=== PATIENT | male | born 1980 | race Hispanic/Latino ===

== ENCOUNTER 2020-04-04 09:45 | Emergency (ER) | payer BC, OTHER ==
[~2020-04-04] VITALS: Ht 185.4 cm; Wt 111.1 kg
[2020-04-04] MEDS ORDERED: IBUPROFEN 600 MG TAB PO STA (09:49)
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
[2020-04-04] MEDS ORDERED: ULTRAM50 MG PO (09:55)
--- NOTE | 2020-04-04 10:52 | Diagnostic Imaging Report ---
EXAMINATION: SHOULDER LEFT COMPLETE INDICATION: Trauma COMPARISON: None FINDINGS: Internal and external rotation radiographs of the left shoulder demonstrate no acute fracture or dislocation. Alignment is anatomic. Soft tissues appear unremarkable. Partially visualized left lung appears clear. IMPRESSION: No acute osseous injury of the left shoulder. Signed by: Juan Carlos Arce MD on 04/04/2020 10:49 AM
== END 2020-04-04 11:22 | disposition home or self-care (01) ==
LOC: ER 09:55
DX: S43.402A Unspecified sprain of left shoulder joint, initial encounter (principal); V43.52XA Car driver injured in collision with other type car in traffic accident, initial encounter; Y92.488 Other paved roadways as the place of occurrence of the external cause; F17.210 Nicotine dependence, cigarettes, uncomplicated
CPT/HCPCS: 99283

== ENCOUNTER → 2021-04-07 | Day surgery (SDC) | payer OTHER ==
[~2021-04-07] MED LIST: FENTANYL CITRATE/PF 100MCG/2 ML INJ ONE; LIDOCAINE HCL 2% LOCAL INJ 5 ML SDV VIAL INJ ONE; MIDAZOLAM HCL 2 MG/2 ML VIAL ONE; PHENTERMINE H37.5 MG PO; PROPOFOL IV EMULSION 10 MG/ML 20 ML VIAL ONE; ULTRAM50 MG PO
[2021-04-07 13:25] VITALS: BP 127/83
== END | disposition home or self-care (01) ==
LOC: OR 09:10
PROVIDERS: ATTEND Internal Medicine Gastroenterology
DX: K29.70 Gastritis, unspecified, without bleeding (principal); K31.7 Polyp of stomach and duodenum; K20.90 Esophagitis, unspecified without bleeding; K21.9 Gastro-esophageal reflux disease without esophagitis; K46.9 Unspecified abdominal hernia without obstruction or gangrene; K59.09 Other constipation; R03.0 Elevated blood-pressure reading, without diagnosis of hypertension; Z01.810 Encounter for preprocedural cardiovascular examination; Z01.812 Encounter for preprocedural laboratory examination; Z20.822 Contact with and (suspected) exposure to COVID-19; Z68.33 Body mass index [BMI] 33.0-33.9, adult
CPT/HCPCS: 43239; 93005; C9113; J2001; J2250; J2704; J3010; U0002